=== PATIENT | female | born 1940 | race Caucasian/White ===

== ENCOUNTER 2023-02-14 14:48 | Emergency (ER) | payer MEDICARE, MEDICAID ==
[~2023-02-14] VITALS: Ht 162.6 cm; Wt 91.0 kg
[~2023-02-14 14:48] MED LIST: GABA-532 PO; LIP40 PO; PANT40TA51 PO
[2023-02-14 15:00] VITALS: BP 182/79
[2023-02-14] MEDS ORDERED: HYDROCODONE/ACETAMINOPHEN 5/325MG TABLET PO STA (15:17)
[2023-02-14 15:58] LABS: BASOPHILS % 0.7 % (0.0-2.0); EOSINOPHILS % 2.2 % (0.0-5.0); HEMATOCRIT. 32.3 % (36.0-48.0); HEMOGLOBIN. 10.8 g/dL (12.0-16.0); MEAN CORPUSCULAR HEMOGLOBIN 29.8 pg (28.0-32.0); MEAN CORPUSCULAR VOLUME 88.7 fL (81.0-99.0); MEAN PLATELET VOLUME 6.7 fl (7.4-10.4); MONOCYTES % 6.2 % (2.0-8.0); NEUTROPHILS % 67.9 % (40.0-76.0); PLATELET 320 x1000/uL (130-400); RED BLOOD CELL COUNT 3.64 mill/uL (4.2-5.4); RED CELL DISTRIBUTION WIDTH 14.7 % (11.6-14.6)
[2023-02-14 16:14] LABS: CHLORIDE 107 mEq/L (98-107)
[2023-02-14] MEDS ORDERED: TOPUD MT (18:52)
== END 2023-02-14 20:03 | disposition home or self-care (01) ==
LOC: ER 14:48
DX: M54.9 Dorsalgia, unspecified (principal); I10 Essential (primary) hypertension; Z88.0 Allergy status to penicillin
CPT/HCPCS: 36415; 72128; 72131; 80053; 85025; 99284